=== PATIENT | female | born 1985 | race Caucasian/White ===

== ENCOUNTER 2020-03-19 12:33 | Emergency (ER) | payer OTHER ==
[~2020-03-19 12:33] MED LIST: BACTRIM DS 8001 TA1 PO; FLEXERIL10 MG PO; MACROBID100 M1 PO; MOTRIN800 MG PO; NKHM; NORCO 5-325 TA1 EACH PO; VICODIN 5/500 505 MG PO
[2020-03-19] MEDS ORDERED: OXCARBAZEPINE150 MG PO (12:44)
[2020-03-19] MEDS ORDERED: ZOLOFT50 MG PO (12:44)
[2020-03-19] MEDS ORDERED: ZOFRAN4 MG PO (12:45)
[2020-03-19 13:04] LABS: BASO % 0.2 % (0.0-1.0); EOS # 0.1 10*3/uL (0.0-0.4); EOS % 1.1 % (1.0-4.0); HEMATOCRIT 39.9 % (37.0-47.0); LYMPH # 1.6 10*3/uL (1.3-4.4); LYMPH % 18.7 % (27.0-41.0); MEAN CELL VOLUME 93.7 fl (81.0-99.0); MEAN CORPUSCULAR HGB 31.5 pg (27.0-31.0); MEAN CORPUSCULAR HGB CONC 33.6 g/dl (33.0-37.0); MEAN PLATELET VOLUME 8.6 fl (9.6-12.3); MONO # 0.5 10*3/uL (0.1-1.0); MONO % 5.7 % (3.0-9.0); NEUT # 6.5 10*3/uL (2.3-7.9); NEUT % 74.1 % (47.0-73.0); PLATELET COUNT AUTOMATED 311 10*3/uL (130-400); RED BLOOD COUNT 4.26 10*6/uL (4.10-5.10); RED CELL DISTRI WIDTH 12.8 % (0-14.5); WHITE BLOOD COUNT 8.8 10*3/uL (4.8-10.8)
[2020-03-19 13:18] LABS: ALBUMIN 3.5 gm/dl (3.1-4.5); ALKALINE PHOSPHATASE 91 U/L (45-117); BUN 8 mg/dl (7-24); CHLORIDE 110 mmol/L (98-107); CREATININE 0.62 mg/dL (0.55-1.02); POTASSIUM 3.6 mmol/L (3.5-5.1); SGOT/AST 14 IU/L (3-35); SGPT/ALT 27 U/L (12-78); SODIUM 139 mmol/L (136-145); TOTAL PROTEIN 7.1 gm/dL (6.4-8.2)
[2020-03-19 13:22] LABS: ACETAMINOPHEN (TYLENOL) < 5.0 ug/ml (10-30); BETA-HCG, QUANT < 1.0 mIU/mL (1-3); ETHYL ALCOHOL < 3.0 mg/dl (<3)
[2020-03-19 13:29] LABS: VALPROIC ACID (DEPAKENE) < 3.0 ug/ml (50-100)
[2020-03-19 13:57] LABS: BILIRUBIN Negative (Negative); BLOOD Negative (Negative); CLARITY Turbid (Clear); COLOR Yellow (Yellow); GLUCOSE Negative (Negative); KETONE Negative (Negative); LEUKO ESTERASE 1+ (Negative); NITRITE Negative (Negative); UROBILINOGEN 0.2 E.U./dl (0.0-1.0)
[2020-03-19 14:20] LABS: BACTERIA 3+; EPITHELIAL CELLS TNTC
[2020-03-19 14:29] LABS: URINE AMPHETAMINES < 1000 (1000ng/ml); URINE BARBITURATES < 200 (200ng/ml); URINE BENZODIAZEPINES > 200 (200ng/ml); URINE CANNABINOIDS (THC) < 50 (50ng/ml); URINE COCAINE < 300 (300ng/ml); URINE METHADONE < 300 (300ng/ml); URINE OPIATES < 300 (300ng/ml)
[2020-03-19 14:32] LABS: URINE PHENCYCLIDINE < 25 (25ng/ml)
== END 2020-03-19 22:19 | disposition home health service (06) ==
LOC: ED 12:33
PROVIDERS: Emergency Medicine
DX: F43.21 Adjustment disorder with depressed mood (principal); Z79.899 Other long term (current) drug therapy

== ENCOUNTER 2021-10-19 09:28 | Emergency (ER) | payer OTHER, BC ==
[~2021-10-19] VITALS: Wt 79.4 kg
[~2021-10-19 09:28] MED LIST changes: +OXCARBAZEPINE150 MG PO; +ZOFRAN4 MG PO; +ZOLOFT50 MG PO
[2021-10-19] MEDS ORDERED: Motrin,Rufen800 MG PO (11:12)
[2021-10-19] MEDS ORDERED: HYDROCODONE-AC1 EAC1 PO (11:12)
== END 2021-10-19 11:35 | disposition home or self-care (01) ==
LOC: ED 09:28
DX: S62.617A Displaced fracture of proximal phalanx of left little finger, initial encounter for closed fracture (principal); Z79.899 Other long term (current) drug therapy; V49.88XA Car occupant (driver) (passenger) injured in other specified transport accidents, initial encounter; Y93.89 Activity, other specified; Y92.413 State road as the place of occurrence of the external cause; Y99.9 Unspecified external cause status

== ENCOUNTER → 2021-10-28 | Outpatient (CLI) | payer BC, OTHER ==
[~2021-10-28] MED LIST changes: +HYDROCODONE-AC1 EAC1 PO; +Motrin,Rufen800 MG PO
== END | disposition home or self-care (01) ==
LOC: ORTHO 01:20
PROVIDERS: ATTEND Orthopaedic Surgery
DX: S62.617D Displaced fracture of proximal phalanx of left little finger, subsequent encounter for fracture with routine healing (principal); M25.842 Other specified joint disorders, left hand; X58.XXXD Exposure to other specified factors, subsequent encounter

== ENCOUNTER → 2021-11-02 | Outpatient (CLI) | payer BC, OTHER | END | disposition home or self-care (01) | LOC: ORTHO 01:02 | PROVIDERS: ATTEND Orthopaedic Surgery | DX: S62.617D Displaced fracture of proximal phalanx of left little finger, subsequent encounter for fracture with routine healing (principal); X58.XXXD Exposure to other specified factors, subsequent encounter ==

== ENCOUNTER → 2021-11-09 | Outpatient (CLI) | payer BC, OTHER ==
[~2021-11-09] MED LIST changes: +ABILIFY5 MG PO
== END | disposition home or self-care (01) ==
LOC: ORTHO 01:12
PROVIDERS: ATTEND Orthopaedic Surgery
DX: S62.617D Displaced fracture of proximal phalanx of left little finger, subsequent encounter for fracture with routine healing (principal); X58.XXXD Exposure to other specified factors, subsequent encounter

== ENCOUNTER 2021-11-10 17:53 | Emergency (ER) | payer BC, OTHER ==
[~2021-11-10] VITALS: Wt 88.5 kg
[~2021-11-10 17:53] MED LIST changes: -ABILIFY5 MG PO
[2021-11-10 18:41] LABS: BASO % 0.4 % (0.0-1.0); EOS # 0.5 10*3/uL (0.0-0.4); EOS % 4.3 % (1.0-4.0); HEMATOCRIT 41.6 % (37.0-47.0); LYMPH # 1.9 10*3/uL (1.3-4.4); LYMPH % 17.8 % (27.0-41.0); MEAN CELL VOLUME 95.4 fl (81.0-99.0); MEAN CORPUSCULAR HGB 31.9 pg (27.0-31.0); MEAN CORPUSCULAR HGB CONC 33.4 g/dl (33.0-37.0); MEAN PLATELET VOLUME 8.6 fl (9.6-12.3); MONO # 0.6 10*3/uL (0.1-1.0); MONO % 5.2 % (3.0-9.0); NEUT # 7.6 10*3/uL (2.3-7.9); PLATELET COUNT AUTOMATED 296 10*3/uL (130-400); RED BLOOD COUNT 4.36 10*6/uL (4.10-5.10); RED CELL DISTRI WIDTH 12.6 % (0-14.5); WHITE BLOOD COUNT 10.6 10*3/uL (4.8-10.8)
[2021-11-10 18:58] LABS: ALKALINE PHOSPHATASE 131 U/L (45-117); B-hCG (QUALITATIVE) NEGATIVE (NEGATIVE); BUN 12 mg/dl (7-24); CHLORIDE 108 mmol/L (98-107); CPK 73 U/L (26-192); CREATININE 0.59 mg/dL (0.55-1.02); POTASSIUM 3.8 mmol/L (3.5-5.1); SGOT/AST 34 IU/L (3-35); SGPT/ALT 74 U/L (12-78); SODIUM 139 mmol/L (136-145); TOTAL PROTEIN 7.1 gm/dL (6.4-8.2)
[2021-11-10 18:59] LABS: ACETAMINOPHEN (TYLENOL) < 5.0 ug/ml (10-30); ETHYL ALCOHOL < 3.0 mg/dl (<3)
[2021-11-10 19:11] LABS: BILIRUBIN Negative (Negative); BLOOD Negative (Negative); CLARITY Clear (Clear); COLOR Yellow (Yellow); GLUCOSE Negative (Negative); KETONE Negative (Negative); LEUKO ESTERASE 1+ (Negative); NITRITE Negative (Negative); PH 5.5 (4.5-8.0)
[2021-11-10 19:21] LABS: URINE AMPHETAMINES < 1000 (1000ng/ml); URINE BARBITURATES < 200 (200ng/ml); URINE BENZODIAZEPINES > 200 (200ng/ml); URINE CANNABINOIDS (THC) > 50 (50ng/ml); URINE COCAINE < 300 (300ng/ml); URINE METHADONE < 300 (300ng/ml); URINE OPIATES > 300 (300ng/ml)
[2021-11-10 19:26] LABS: WBC 16-20 wbc/hpf (0-5)
[2021-11-10 19:27] LABS: BACTERIA 1+; MUCOUS 1+
[2021-11-10 19:28] LABS: URINE PHENCYCLIDINE > 25 (25ng/ml)
== END 2021-11-10 21:43 | disposition home or self-care (01) ==
LOC: ED 17:53
PROVIDERS: Physician Assistant
DX: F43.20 Adjustment disorder, unspecified (principal); Z79.899 Other long term (current) drug therapy

== ENCOUNTER 2021-11-11 00:17 | Emergency (ER) | payer BC, OTHER ==
[~2021-11-11] VITALS: Ht 165.1 cm; Wt 83.9 kg
== END 2021-11-11 01:32 | disposition left against medical advice (07) ==
LOC: ED 00:17
DX: R11.0 Nausea (principal); Z79.899 Other long term (current) drug therapy

== ENCOUNTER 2021-11-11 09:24 | Emergency (ER) | payer BC, OTHER ==
[~2021-11-11] VITALS: Ht 165.1 cm; Wt 83.0 kg
== END 2021-11-11 09:40 | disposition left against medical advice (07) ==
LOC: ED 09:24
DX: Z53.21 Procedure and treatment not carried out due to patient leaving prior to being seen by health care provider (principal)

== ENCOUNTER 2021-11-14 09:01 | Inpatient (IN) | payer BC, OTHER ==
[~2021-11-14] VITALS: Ht 165.1 cm; Wt 80.6 kg
[2021-11-14 09:13] VITALS: BP 175/89
[2021-11-14] MEDS ORDERED: ABILIFY5 MG PO (09:34)
[2021-11-14 09:51] LABS: BASO % 0.3 % (0.0-1.0); HEMATOCRIT 41.8 % (37.0-47.0); LYMPH # 1.4 10*3/uL (1.3-4.4); LYMPH % 11.7 % (27.0-41.0); MEAN CELL VOLUME 92.3 fl (81.0-99.0); MEAN CORPUSCULAR HGB CONC 34.7 g/dl (33.0-37.0); MEAN PLATELET VOLUME 8.6 fl (9.6-12.3); MONO # 0.5 10*3/uL (0.1-1.0); MONO % 3.8 % (3.0-9.0); NEUT # 9.9 10*3/uL (2.3-7.9); NEUT % 83.6 % (47.0-73.0); PLATELET COUNT AUTOMATED 352 10*3/uL (130-400); RED BLOOD COUNT 4.53 10*6/uL (4.10-5.10); RED CELL DISTRI WIDTH 12.2 % (0-14.5); WHITE BLOOD COUNT 11.9 10*3/uL (4.8-10.8)
[2021-11-14 10:09] LABS: ALKALINE PHOSPHATASE 143 U/L (45-117); BUN 7 mg/dl (7-24); CHLORIDE 105 mmol/L (98-107); CREATININE 0.78 mg/dL (0.55-1.02); POTASSIUM 3.2 mmol/L (3.5-5.1); SGOT/AST 19 IU/L (3-35); SGPT/ALT 108 U/L (12-78); SODIUM 140 mmol/L (136-145); TOTAL PROTEIN 7.7 gm/dL (6.4-8.2)
[2021-11-14 10:14] LABS: ETHYL ALCOHOL < 3.0 mg/dl (<3)
[2021-11-14 10:16] LABS: B-hCG (QUALITATIVE) NEGATIVE (NEGATIVE)
[2021-11-14 11:06] LABS: URINE AMPHETAMINES < 1000 (1000ng/ml); URINE BARBITURATES < 200 (200ng/ml); URINE BENZODIAZEPINES < 200 (200ng/ml); URINE CANNABINOIDS (THC) < 50 (50ng/ml); URINE COCAINE < 300 (300ng/ml); URINE METHADONE < 300 (300ng/ml); URINE OPIATES < 300 (300ng/ml); URINE PHENCYCLIDINE < 25 (25ng/ml)
[2021-11-14 12:00] VITALS: BP 136/87
[2021-11-14 16:00] VITALS: BP 132/82
[2021-11-14 20:00] VITALS: BP 136/80
[2021-11-15] VITALS: BP 134/84
[2021-11-15 08:00] VITALS: BP 137/81
[2021-11-15 12:00] VITALS: BP 133/89
[2021-11-15 20:00] VITALS: BP 140/88
[2021-11-16] VITALS: BP 138/89
[2021-11-16 08:00] VITALS: BP 149/90
[2021-11-16] MEDS ORDERED: ATARAX,VISTARIL50 MG PO (08:13)
[2021-11-16] MEDS ORDERED: ARIPIPRAZOLE5 MG PO (08:13)
[2021-11-16] MEDS ORDERED: ONDANSETRON HYDR4 M1 PO (08:14)
[2021-11-16] MEDS ORDERED: ROPINIROLE HYD0.5 MG PO (08:56)
[2021-11-16 16:00] VITALS: BP 131/80
[2021-11-16 20:00] VITALS: BP 134/86
[2021-11-17] VITALS: BP 131/81
[2021-11-17 08:00] VITALS: BP 130/78
== END 2021-11-17 08:46 | disposition home or self-care (01) | DRG 897 ==
LOC: ED 09:01 → 5E 09:47 → EDHOLD 09:47 → 4E 10:41 → 5E 11:26
PROVIDERS: Emergency Medicine; ADMIT Internal Medicine; ATTEND Internal Medicine
DX: F11.93 Opioid use, unspecified with withdrawal (principal); F41.9 Anxiety disorder, unspecified; F17.210 Nicotine dependence, cigarettes, uncomplicated; R73.9 Hyperglycemia, unspecified; E87.6 Hypokalemia; F31.9 Bipolar disorder, unspecified; Z87.81 Personal history of (healed) traumatic fracture; Z82.49 Family history of ischemic heart disease and other diseases of the circulatory system

== ENCOUNTER → 2021-11-23 | Outpatient (CLI) | payer BC, OTHER ==
[~2021-11-23] MED LIST changes: +ABILIFY5 MG PO; +ARIPIPRAZOLE5 MG PO; +ATARAX,VISTARIL50 MG PO; +BUPRENORPHINE-1 EAC2 SL; +COLACE100 MG PO; +IBU800 MG PO; +ONDANSETRON HYDR4 M1 PO; +ROPINIROLE HYD0.5 MG PO
== END | disposition home or self-care (01) ==
LOC: ORTHO 00:55
PROVIDERS: ATTEND Orthopaedic Surgery
DX: S62.617D Displaced fracture of proximal phalanx of left little finger, subsequent encounter for fracture with routine healing (principal); X58.XXXD Exposure to other specified factors, subsequent encounter

== ENCOUNTER 2021-11-26 03:57 | Inpatient (IN) | payer BC, OTHER ==
[~2021-11-26] VITALS: Ht 165.1 cm; Wt 76.3 kg
[2021-11-26] VITALS (7 sets, daily range): BP systolic 128–145; BP diastolic 71–98
[~2021-11-26 03:57] MED LIST changes: -BUPRENORPHINE-1 EAC2 SL; -COLACE100 MG PO; -IBU800 MG PO
[2021-11-26] MEDS ORDERED: BUPRENORPHINE-1 EAC2 SL (04:11)
[2021-11-26 04:35] LABS: BASO % 0.2 % (0.0-1.0); EOS # 0.1 10*3/uL (0.0-0.4); EOS % 0.3 % (1.0-4.0); HEMATOCRIT 41.1 % (37.0-47.0); LYMPH # 1.7 10*3/uL (1.3-4.4); LYMPH % 9.3 % (27.0-41.0); MEAN CELL VOLUME 92.2 fl (81.0-99.0); MEAN CORPUSCULAR HGB 32.5 pg (27.0-31.0); MEAN CORPUSCULAR HGB CONC 35.3 g/dl (33.0-37.0); MEAN PLATELET VOLUME 9.2 fl (9.6-12.3); MONO # 0.9 10*3/uL (0.1-1.0); NEUT # 15.1 10*3/uL (2.3-7.9); NEUT % 84.9 % (47.0-73.0); PLATELET COUNT AUTOMATED 333 10*3/uL (130-400); RED BLOOD COUNT 4.46 10*6/uL (4.10-5.10); WHITE BLOOD COUNT 17.8 10*3/uL (4.8-10.8)
[2021-11-26 04:46] LABS: ACT PARTIAL THROMBO TIME 28.5 SECONDS (20.0-32.1)
[2021-11-26 04:50] LABS: ALKALINE PHOSPHATASE 110 U/L (45-117); BUN 9 mg/dl (7-24); CHLORIDE 108 mmol/L (98-107); CREATININE 0.73 mg/dL (0.55-1.02); POTASSIUM 4.3 mmol/L (3.5-5.1); SGOT/AST 8 IU/L (3-35); SGPT/ALT 25 U/L (12-78); SODIUM 140 mmol/L (136-145); TOTAL PROTEIN 7.6 gm/dL (6.4-8.2)
[2021-11-26] MEDS ORDERED: ABILIFY5 MG PO (16:22)
[2021-11-27] VITALS: BP 129/86
[2021-11-27 04:00] VITALS: BP 121/74
[2021-11-27 06:27] LABS: BASO % 0.3 % (0.0-1.0); EOS # 0.3 10*3/uL (0.0-0.4); EOS % 2.3 % (1.0-4.0); HEMATOCRIT 37.7 % (37.0-47.0); LYMPH # 2.5 10*3/uL (1.3-4.4); LYMPH % 22.7 % (27.0-41.0); MEAN CELL VOLUME 93.3 fl (81.0-99.0); MEAN CORPUSCULAR HGB 32.2 pg (27.0-31.0); MEAN CORPUSCULAR HGB CONC 34.5 g/dl (33.0-37.0); MEAN PLATELET VOLUME 9.6 fl (9.6-12.3); MONO # 0.9 10*3/uL (0.1-1.0); MONO % 8.3 % (3.0-9.0); NEUT # 7.3 10*3/uL (2.3-7.9); NEUT % 66.1 % (47.0-73.0); PLATELET COUNT AUTOMATED 283 10*3/uL (130-400); RED BLOOD COUNT 4.04 10*6/uL (4.10-5.10); RED CELL DISTRI WIDTH 11.9 % (0-14.5)
[2021-11-27 06:50] LABS: BUN 4 mg/dl (7-24); CHLORIDE 107 mmol/L (98-107); SODIUM 139 mmol/L (136-145)
[2021-11-27 06:56] LABS: ALKALINE PHOSPHATASE 99 U/L (45-117); CHOLESTEROL 92 mg/dL (<200); CREATININE 0.55 mg/dL (0.55-1.02); LDL CHOLESTEROL 42 mg/dL (9-159); SGOT/AST 7 IU/L (3-35); SGPT/ALT 24 U/L (12-78); TOTAL PROTEIN 6.8 gm/dL (6.4-8.2); TRIGLYCERIDES 74 mg/dl (<150)
[2021-11-27 07:32] LABS: POTASSIUM 3.2 mmol/L (3.5-5.1)
[2021-11-27 08:00] VITALS: BP 148/83
[2021-11-27 12:00] VITALS: BP 133/92
[2021-11-27 16:00] VITALS: BP 143/93
[2021-11-27 20:00] VITALS: BP 138/87
[2021-11-28] VITALS (11 sets, daily range): BP systolic 128–149; BP diastolic 70–88
[2021-11-28 06:07] LABS: BUN 5 mg/dl (7-24); CHLORIDE 108 mmol/L (98-107); CREATININE 0.63 mg/dL (0.55-1.02); POTASSIUM 3.5 mmol/L (3.5-5.1); SODIUM 139 mmol/L (136-145)
[2021-11-28 06:30] LABS: BASO # 0.1 10*3/uL (0.0-0.1); BASO % 0.6 % (0.0-1.0); EOS # 0.4 10*3/uL (0.0-0.4); EOS % 3.6 % (1.0-4.0); HEMATOCRIT 39.3 % (37.0-47.0); LYMPH # 2.4 10*3/uL (1.3-4.4); LYMPH % 22.6 % (27.0-41.0); MEAN CELL VOLUME 91.6 fl (81.0-99.0); MEAN CORPUSCULAR HGB 31.5 pg (27.0-31.0); MEAN CORPUSCULAR HGB CONC 34.4 g/dl (33.0-37.0); MEAN PLATELET VOLUME 9.5 fl (9.6-12.3); MONO # 0.9 10*3/uL (0.1-1.0); MONO % 8.6 % (3.0-9.0); NEUT # 6.8 10*3/uL (2.3-7.9); NEUT % 64.3 % (47.0-73.0); PLATELET COUNT AUTOMATED 291 10*3/uL (130-400); RED BLOOD COUNT 4.29 10*6/uL (4.10-5.10); WHITE BLOOD COUNT 10.6 10*3/uL (4.8-10.8)
[2021-11-29] VITALS: BP 164/91
[2021-11-29 06:27] LABS: BUN 7 mg/dl (7-24); CHLORIDE 104 mmol/L (98-107); CREATININE 0.59 mg/dL (0.55-1.02); POTASSIUM 3.9 mmol/L (3.5-5.1); SODIUM 137 mmol/L (136-145)
[2021-11-29 06:35] LABS: HEMATOCRIT 38.9 % (37.0-47.0); MEAN CELL VOLUME 91.7 fl (81.0-99.0); MEAN CORPUSCULAR HGB 31.6 pg (27.0-31.0); MEAN CORPUSCULAR HGB CONC 34.4 g/dl (33.0-37.0); MEAN PLATELET VOLUME 9.6 fl (9.6-12.3); PLATELET COUNT AUTOMATED 306 10*3/uL (130-400); RED BLOOD COUNT 4.24 10*6/uL (4.10-5.10); WHITE BLOOD COUNT 17.8 10*3/uL (4.8-10.8)
[2021-11-29 06:53] LABS: MANUAL DIFF REFLEX YES
[2021-11-29 08:00] VITALS: BP 149/88
[2021-11-29 08:04] LABS: PLATELET SUFFICIENCY NORMAL (NORMAL); TOTAL CELLS COUNTED 100 #CELLS
[2021-11-29] MEDS ORDERED: IBU800 MG PO (09:02)
[2021-11-29] MEDS ORDERED: COLACE100 MG PO (09:02)
[2021-11-29 12:00] VITALS: BP 147/90
== END 2021-11-29 13:00 | disposition home or self-care (01) | DRG 419 ==
LOC: ED 03:57 → EDHOLD 05:22 → 4E 05:22 → 5E 14:45 → 4E 14:46
PROVIDERS: Emergency Medicine; Family Medicine; Internal Medicine; ADMIT Internal Medicine; ATTEND Internal Medicine
PROC: 0FT44ZZ Resection of Gallbladder, Percutaneous Endoscopic Approach (ICD-10-PCS; principal; 2021-11-28)
DX: K80.00 Calculus of gallbladder with acute cholecystitis without obstruction (principal); F31.9 Bipolar disorder, unspecified; F17.210 Nicotine dependence, cigarettes, uncomplicated; F43.21 Adjustment disorder with depressed mood; R73.9 Hyperglycemia, unspecified; E87.8 Other disorders of electrolyte and fluid balance, not elsewhere classified; R00.1 Bradycardia, unspecified; D72.829 Elevated white blood cell count, unspecified; E83.41 Hypermagnesemia; Z82.49 Family history of ischemic heart disease and other diseases of the circulatory system; Z80.9 Family history of malignant neoplasm, unspecified; Z71.6 Tobacco abuse counseling; Z79.899 Other long term (current) drug therapy; E87.6 Hypokalemia; F41.9 Anxiety disorder, unspecified

== ENCOUNTER → 2022-01-11 | Outpatient (CLI) | payer BC, OTHER ==
[~2022-01-11] MED LIST changes: +BUPRENORPHINE-1 EAC2 SL; +COLACE100 MG PO; +IBU800 MG PO
== END | disposition home or self-care (01) ==
LOC: ORTHO 00:11
PROVIDERS: ATTEND Orthopaedic Surgery
DX: S62.617D Displaced fracture of proximal phalanx of left little finger, subsequent encounter for fracture with routine healing (principal); X58.XXXD Exposure to other specified factors, subsequent encounter